=== PATIENT | female | born 1990 | race Caucasian/White ===

== ENCOUNTER 2016-09-01 20:00 | Emergency (ER) | payer OTHER ==
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
[2016-09-01 21:22] VITALS: BP 106/70; PULSE 76; RESP 18; TEMP 97.8
== END 2016-09-01 21:25 | disposition left against medical advice (07) ==
LOC: EC 20:00
DX: R56.9 Unspecified convulsions (principal); G62.9 Polyneuropathy, unspecified; F17.200 Nicotine dependence, unspecified, uncomplicated; Z79.891 Long term (current) use of opiate analgesic; Z88.1 Allergy status to other antibiotic agents; W18.30XA Fall on same level, unspecified, initial encounter
CPT/HCPCS: 99285